=== PATIENT | male | born 1970 | race African-American/Black ===

== ENCOUNTER 2018-05-28 05:09 | Day surgery (SDC) | payer OTHER ==
[~2018-05-28] VITALS: Ht 185.4 cm; Wt 161.0 kg
[2018-05-28] VITALS (8 sets, daily range): BP systolic 124–149; BP diastolic 46–88
[2018-05-28] MEDS ORDERED: ENALAPRIL MALEA10 MG ORAL (05:56)
[2018-05-28] MEDS ORDERED: CITALOPRAM HBR10 M1 ORAL (05:56)
[2018-05-28] MEDS ORDERED: ceFAZolin 1gm IVPB IVPB ONE ×2 (06:00)
[2018-05-28] MEDS ORDERED: oxyCONTIN 20mg tab ORAL ONE (06:00)
[2018-05-28] MEDS ORDERED: celeBREX 200mg Cap **SURGERY PATIENTS ONLY ORAL ONE (06:00)
[2018-05-28] MEDS ORDERED: Succinylcholine 20mg/ml 10ml vial ONE (06:54)
--- NOTE | 2018-05-28 06:57 | Anethesia Preoperative Eval ---
Anesthesia Pre-op PMH/ROS General Date of Evaluation: May 28, 2018 Anesthesiologist: Phill ASA Score: ASA 3 Mallampati Score Class I : Soft palate, uvula, fauces, pillars visible Class II: Soft palate, uvula, fauces visible Class III: Soft palate, base of uvula visible Class IV: Only hard plate visible Mallampati Classification: Class III Surgeon: Violette Diagnosis: Right knee OA Surgical Procedure: t Right knee arthroscopy Anesthesia History: none Family History: no anesthesia problems Allergies: Coded Allergies: No Known Allergies (Unverified , 05/27/18) Medications: see eMAR Patient NPO?: Yes NPO Date: May 28, 2018 NPO Time: 22:00 Past Medical History Cardiovascular: Reports: HTN; Denies: CAD, TX, valve dz, arrhythmia, other Pulmonary: Denies: asthma, COPD, KARL, other Gastrointestinal/Genitourinary: Denies: GERD, CRI, ESRD, other Neurologic/Psychiatric: Reports: depression/anxiety; Denies: dementia, CVA, TIA, other Endocrine: Denies: DM, hypothyroidism, steroids, other HEENT: Denies: cataract (L), cataract (R), glaucoma, [place]K (L), [place]K (R), other Hematology/Immune: Denies: anemia, DVT, bleeding disorder, other Musculoskeletal/Integumentary: Reports: OA; Denies: RA, DJD, DDD, edema, other Other: obesity - Morbid PSxH Narrative: gastric sleeve, lap shady Anesthesia Pre-op Phys. Exam Physician Exam Last Vital Signs Date Time Temp Pulse Resp B/P (MAP) Pulse Ox O2 Delivery O2 Flow Rate FiO2 05/28/18 05:58 98.0 71 18 135/86 96 Room Air Constitutional: NAD Cardiovascular: RRR Respiratory: CTA Airway Exam Mallampati Score: Class III MO: limited Neck: short. , obese TMD: <2FB ROM: limited Teeth: intact Anesthesia Pre-op A/P Labs see chart Studies Pre-op Studies: EKG - sr Risk Assessment & Plan Assessment: ASA III Plan: GA Status Change Before Surgery: No Pre-Antibiotics Drug: Ancef 2g Given Within 1 Hr of Incision: Yes Elicia Vergara MD May 28, 2018 06:57
[2018-05-28] MEDS ORDERED: LR 1000ml 1,000 ML IVLG SCH (06:59)
--- NOTE | 2018-05-28 06:59 | Pre-Procedure Note/Attestation ---
Pre-Procedure Note/Attestation Complete Prior to Procedure Planned Procedure: right Procedure Narrative: rt knee scope and chondroplasty Indications for Procedure Pre-Operative Diagnosis: rt knee chondromalacia Attestation I attest that I discussed the nature of the procedure; its benefits; risks and complications; and alternatives (and the risks and benefits of such alternatives ), prior to the procedure, with the patient (or the patient's legal insurance account representative). I attest that, if there was a reasonable possibility of needing a blood transfusion, the patient (or the patient's legal insurance account representative) was given the [facility] standardized written summary, pursuant to the [place] Blood Safety Act ([place] Health and Safety Code # 1645, as amended). I attest that I re-evaluated the patient just prior to the surgery and that there has been no change in the patient's H&P, except as documented below: none Michael Oakes MD May 28, 2018 06:59
[2018-05-28] MEDS ORDERED: Hydromorphone 0.5mg/0.5ml inj IVP PRN (07:00)
[2018-05-28] MEDS ORDERED: LORazepam Inj 2mg/ml 1ml IV PRN (07:00)
[2018-05-28] MEDS ORDERED: Ketorolac 30mg Inj IV PRN (07:00)
[2018-05-28] MEDS ORDERED: Metoclopramide 10mg/2ml Inj IVP PRN (07:00)
[2018-05-28] MEDS ORDERED: fentaNYL 100 mcg/2 mL IV PRN (07:00)
[2018-05-28] MEDS ORDERED: DiphenhydrAMINE 50mg/ml Inj IVP PRN (07:00)
[2018-05-28] MEDS ORDERED: Ropivacaine 5mg/ml Vial 30ml INJ ONE (07:04)
[2018-05-28] MEDS ORDERED: Lidocaine 1% MPF 10mg/ml 5ml ONE (07:11)
[2018-05-28] MEDS ORDERED: Propofol 200mg/20ml IV ONE ×2 (07:11→07:44)
[2018-05-28] MEDS ORDERED: Midazolam 2mg/2ml Inj ONE (07:12)
[2018-05-28] MEDS ORDERED: Ketorolac 30mg Inj ONE (07:29)
[2018-05-28] MEDS ORDERED: Dexamethasone 4mg/ml vial ONE (07:29)
[2018-05-28] MEDS ORDERED: fentaNYL 100 mcg/2 mL IV ONE (07:45)
--- NOTE | 2018-05-28 07:52 | Brief Operative Note ---
Immediate Post Operative Note Operative Note Chief Complaint: rt knee pain Pre-op Diagnosis: rt knee chondromalacia Procedure: rt knee scope, chondroplasty Post-op Diagnosis: same as pre-op Findings: consistent w/pre-op dx studies Surgeon: md chika Newspaper Illustrator: jojo mcarthur Anesthesiologist: md tomer Anesthesia: general Specimen: none Complications: none Condition: stable Fluids: ns Estimated Blood Loss: minimal Drains: none Implant(s) used?: No Chiquis Mcarthur May 28, 2018 07:52
--- NOTE | 2018-05-28 08:04 | Immediate Post-Op Evaluation ---
Immediate Post-Op Evalulation Immediate Post-Op Evalulation Procedure: Right knee arthroscopy and chondroplasty Date of Evaluation: May 28, 2018 Time of Evaluation: 08:05 IV Fluids: 600 Blood Products: 0 Estimated Blood Loss: min Urinary Output: 0 Blood Pressure Systolic: 143 Blood Pressure Diastolic: 88 Pulse Rate: 94 Respiratory Rate: 17 O2 Sat by Pulse Oximetry: 98 Temperature (Fahrenheit): 97.4 Pain Score (1-10): 0 Nausea: No Vomiting: No Complications 0 Patient Status: awake, reacts, patent, none Hydration Status: adequate Drug: Ancef 2g Given Within 1 Hr of Incision: Yes Time Given: 07:30 Elicia Vergara MD May 28, 2018 08:04
--- NOTE | 2018-05-28 08:05 | 48 Hour Post Anesthesia Eval ---
Post Anesthesia Evaluation Procedure: Right knee arthroscopy and chondroplasty Date of Evaluation: May 28, 2018 Airway: patent Nausea: No Vomiting: No Pain Intensity: 0 Hydration Status: adequate Cardiopulmonary Status: at baseline Mental Status/LOC: patient returned to baseline Post-Anesthesia Complications: 0 Follow-up care needed: ready to discharge Elicia Vergara MD May 28, 2018 08:05
--- NOTE | 2018-05-28 10:45 | Operative Note - Dictated ---
DATE OF OPERATION: 05/28/2018 PREOPERATIVE DIAGNOSIS: Right knee internal derangement with recurrent swelling and pain. POSTOPERATIVE DIAGNOSES: 1. 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 2. Right knee multiple loose free-floating fragments of cartilage. 3. No evidence of medial or lateral meniscus tearing. PROCEDURES: 1. Right knee arthroscopy and extensive intra-articular shaving. 2. Right knee patellofemoral chondroplasty. 3. Right knee lateral tibial plateau chondroplasty. 4. Resection of multiple loose fragments from the right knee. SURGEON: Michael Oakes M.D. FIELD EVIDENCE TECHNICIAN: Shayna Choudhury Crosscutter Rolled Glass was present during the actual operative portion of the case and was important and essential part of the operation. During the operation, the engineering inspection assistant held and operated the arthroscopic camera for visualization, assisted by manipulating the leg to help with visualization, and helped with essential parts of the repair process as necessary such as operating surgical instruments under surgeon supervision, suture management, and wound closures. ANESTHESIOLOGIST: Elicia Pollock M.D. ANESTHESIA: LMA anesthesia. ESTIMATED BLOOD LOSS: Less than 20 mL. TOURNIQUET TIME: 25 minutes. COMPLICATIONS: None. BRIEF HISTORY: The patient is a very pleasant 47-year-old gentleman who has had ongoing right knee pain after an injury. He was treated nonoperatively for a period of time and he continued to have pain, swelling, popping, and catching. He felt like that there was something clicking inside his knee. SURGICAL INDICATION: Patient is a 47-year-old male who sustained the above injury to his knee. The patient was treated non-operative initially, but this did not alleviate the patients symptoms. Therefore, after discussing all non-surgical and surgical options, and discussing all foreseeable risk and benefits of surgery, the patient opted for surgical treatment as described above. PATIENT POSITIONING: Patient was brought to the operating room table and placed supine. All pressure points were well padded. General Anesthesia was induced and a well padded tourniquet was placed on the thigh. The lateral post was placed and positioned to allow for opening of the medial compartment of the knee without placing pressure over the fibular head. Patients entire leg was prepped and draped in the usual sterile fashion. Time out was performed and preop abx was given and after exsanguinating the lower extremity, the tourniquet was inflated to 275 mm of mercury. EXAMINATION OF THE KNEE UNDER ANESTHESIA: Before prepping and draping the knee and while the patient was relaxed under general anesthesia, the knee was examined for ROM, and anterior and posterior, medial and lateral, posterolateral, and posteromedial instability. Pivot shift testing was performed. There was no evidence of loss of motion or instability and the pivot shift testing was negative. PORTAL PLACEMENT: The lateral portal was placed with the knee flexed to 90 degrees at the level of inferior border of the patella in line with the lateral border of the patella. A cm skin incision was made with an eleven blade, and using a blunt obturator, the capsule was gently penetrated. Sterile saline solution was then infused inside the knee with the aid of a pump set at 35 mm mercury pressure. Under direct visualization, placement of the medial portal was preliminary judged using a spinal needle, and it was subsequently established using the same technique as the lateral portal. Care was given not to injure the cutaneous branches of the medial Saphenous nerve or the subcutaneous veins. DIAGNOSTIC ARTHROSCOPY: The suprapatellar patellar pouch was visualized. There was extensive scar tissue and there was multiple free-floating loose fragments in the suprapatellar pouch. The medial and lateral patellar facets and trochlear groove articular cartilage was visualized. There was chondral damage on the medial lateral patellar facet as well as central trochlear groove consistent with grade 2 chondromalacia. There was some unstable chondral flap. The medial plica shelf and the corresponding medial femoral condyle articular cartilage were visualized. There was no significantly thickening of the medial plica shelf and there were no kissing? lesion over the medial femoral condyle. The lateral gutter and the posterolateral corner of the knee were visualized. There were no loose bodies, and the popliteus tendon and other structures of the posterolateral corner of the knee were intact intra-articularly. At this point, the knee was placed in the figure of four position and the lateral compartment was entered. The lateral femoral condyle, lateral tibial plateau, and the anterior, body, and the posterior horn of the lateral meniscus were visualized and probed. There was a small area of chondral damage of the lateral tibial plateau consistent with ulcer measuring 5 mm x 10 mm. This was in the weightbearing zone. The lateral meniscus was completely intact both on its undersurface and on the top. The knee was then placed at 90 degree and the ACL and PCL were visualized and probed. The ACL was completely intact on visualization and probing, and it had excellent tension. The PCL was completely intact on visualization and probing and it had excellent tension. The medial compartment was then entered and the medial femoral condyle, medial tibial plateau, and the anterior, body, and the posterior horn of the medial meniscus were visualized and probed. The articular surfaces were intact and devoid of articular cartilage damage. The medial meniscus was completely intact both on its undersurface and on the top. The medial gutter was visualized. There was no evidence of defect or loose fragments. The scope was then brought back to the patella femoral compartment. OPERATIVE ARTHROSCOPY: At this point, all loose debris and fragments were removed with the use of suction motorized shaver. Specific attention was given to assure all visible loose fragments were irrigated out of the knee joint with pump inflow and cannula outflow system. The loose fragments were identified and visualized. Using combination of the shaver, suction, and graspers, these loose fragments were removed. These loose fragments measured approximately 5 x 7 mm. All debris left behind was removed with combination of emilio and graspers. The frayed articular cartilage of the undersurface of the patella and the trochlear groove were debrided using a motorized shaver. Suction was used to pull in the loose fragments and flaps of the cartilage and to minimize damage to the intact and well attached portion of the cartilage. This allowed for a smooth surface for the articular cartilage gliding. Care was given to the area of cartilage damage in the lateral compartment. The frayed and loose fragments of articular cartilage were debrided using a motorized shaver. Suction was used to pull in the loose fragments and flaps of the cartilage and to minimize damage to the intact and well attached portion of the cartilage. This allowed for smooth surfaces for the articular cartilage. CONDITION AT DISCHARGE FROM OPERATING ROOM: The knee was irrigated with copious amount of normal saline at the end of the procedure. The scope was removed and the water was drained. The skin edges were re-approximated and sterile dressing was applied. All lap count and instrument counts were correct. Patient tolerated the procedure well without complications and was taken to the recovery room in stable conditions. Michael Les Oakes DR: BEATRIZ JOB#: [id number] CC:
[2018-05-28] MEDS ORDERED: HYDROmorphone 1mg/ml Carpuject SUBQ PRN (14:01)
[2018-05-28] MEDS ORDERED: Norco 5mg/325mg tab ORAL PRN (14:01)
[2018-05-28] MEDS ORDERED: Tylenol #3 tab (300mg/30mg) ORAL PRN (14:01)
[2018-05-28] MEDS ORDERED: D5 1/2NS 1,000 ML IV SCH (14:01)
== END 2018-05-28 09:40 | disposition home or self-care (01) ==
LOC: SUR 05:09
DX: M94.261 Chondromalacia, right knee (principal); M23.41 Loose body in knee, right knee; E66.9 Obesity, unspecified; I10 Essential (primary) hypertension; F32.9 Major depressive disorder, single episode, unspecified; F41.9 Anxiety disorder, unspecified; M19.90 Unspecified osteoarthritis, unspecified site; Z98.84 Bariatric surgery status; Z90.49 Acquired absence of other specified parts of digestive tract
CPT/HCPCS: 29877; J0330; J0690; J1100; J1885; J2250; J2405; J2704; J2795; J3010; 94003; 94150